=== PATIENT | male | born 1990 | race Hispanic/Latino ===

== ENCOUNTER 2020-05-17 06:57 | Emergency (ER) | payer SELFPAY ==
[2020-05-17] MEDS ORDERED: KETOROLAC 30 MG/ML INJ ONE (08:03)
[2020-05-17 08:41] LABS: SARS-COV-2 RT PCR POSITIVE (NEGATIVE)
--- NOTE | 2020-05-17 08:47 | ER ---
Nurse's Notes [facility] Name: Saroj Hassan Age: 29 yrs Sex: Male : 1990 Arrival Date: 05/17/2020 Time: 07:05 Bed 13 Private MD: Diagnosis: SARS-associated coronavirus as the cause of diseases classified elsewhere;Acute laryngopharyngitis;Viral infection, unspecified Presentation: 05/17 07:15 Chief complaint: Patient states: sore throat and bilateral ear pain that began Wednesday. ss Coronavirus screen: Client denies travel out of the [place] in the last 14 days. Client presents with at least one sign or symptom that may indicate coronavirus-19. Standard/surgical mask placed on the client. Ebola Screen: Patient denies exposure to infectious person. Patient denies travel to an Ebola-affected area in the 21 days before illness onset. Initial Sepsis Screen: Does the patient meet any 2 criteria? HR > 90 bpm. No. Patient's initial sepsis screen is negative. Does the patient have a suspected source of infection? No. Patient's initial sepsis screen is negative. Risk Assessment: Do you want to hurt yourself or someone else? Patient reports no desire to harm self or others. Onset of symptoms was May 13, 2020. 07:15 Method Of Arrival: Ambulatory 07:15 Acuity: KENDALL 4 ss Historical: - Allergies: 07:16 No Known Allergies; ss - Home Meds: 07:16 None [Active]; ss - PMHx: 07:16 None; ss - PSHx: 07:16 None; ss - Immunization history:: Adult Immunizations unknown. - Social history:: Smoking status: Patient denies any tobacco usage or history of. Screenin:42 Abuse screen: Denies threats or abuse. Denies injuries from another. Nutritional iw screening: No deficits noted. Tuberculosis screening: No symptoms or risk factors identified. Fall Risk None identified. Assessment: 07:41 General: Appears in no apparent distress. Behavior is calm, cooperative. General: iw Reports feeling ill for. Pain: Complains of pain in throat, ears, body aches. Neuro: Level of Consciousness is awake, alert, obeys commands, Oriented to person, place, time, situation, Moves all extremities. Full function. Cardiovascular: Patient's skin is warm and dry. Respiratory: Respiratory effort is even, unlabored, Respiratory pattern is regular. EENT: Throat is reddened. Derm: Skin is intact, is healthy with good turgor. Musculoskeletal: Range of motion: intact in all extremities. Vital Signs: 07:15 BP 148 / 83; Pulse 101; Resp 16; Temp 98.2(O); Pulse Ox 100% on R/A; Weight 88.9 kg; ss Height 5 ft. 7 in. (170.18 cm); Pain 10/10; 07:15 Body Mass Index 30.70 (88.90 kg, 170.18 cm) ED Course: 07:05 Patient arrived in ED. bp1 07:15 Arm band placed on right wrist. ss 07:16 Triage completed. ss 07:18 Dirk Castillo MD is Attending Physician. kdr 07:27 Lacie Melvin, RN is Primary Nurse. iw Administered Medications: 07:48 Drug: TORadol - Ketorolac 15 mg Route: IM; Site: left deltoid; iw Outcome: 08:46 Discharge ordered by . kdr 08:56 Patient left the ED. iw Signatures: Dirk Castillo MD MD kdr Lacie Melvin, RN RN Annette France, JARETT RN Berkley Alfaro bp1
--- NOTE | 2020-05-17 08:47 | EDPHYS ---
Physician Documentation [facility] Name: Saroj Hassan Age: 29 yrs Sex: Male : 1990 Arrival Date: 05/17/2020 Time: 07:05 Bed 13 Private MD: ED Physician Dirk Castillo HPI: 05/17 07:27 This 29 yrs old Male presents to ER via Ambulatory with complaints of Ear kdr Pain, Sore Throat. 07:27 The patient presents with sore throat. The patient describes throat pain as burning, kdr constant, raw. Onset: The symptoms/episode began/occurred gradually, Wednesday. Severity of symptoms: At their worst the symptoms were mild, moderate, just prior to arrival, in the emergency department the symptoms are unchanged. Modifying factors: The symptoms are alleviated by nothing, the symptoms are aggravated by foods, swallowing. Associated signs and symptoms: Pertinent positives: cough, headache, Bilateral ear pain. The patient has not experienced similar symptoms in the past. The patient has not recently seen a physician. Historical: - Allergies: 07:16 No Known Allergies; ss - Home Meds: 07:16 None [Active]; ss - PMHx: 07:16 None; ss - PSHx: 07:16 None; ss - Immunization history:: Adult Immunizations unknown. - Social history:: Smoking status: Patient denies any tobacco usage or history of. ROS: 07:27 Constitutional: Negative for fever, chills, and weight loss, Eyes: Negative for injury, kdr pain, redness, and discharge, Neck: Negative for injury, pain, and swelling, Cardiovascular: Negative for chest pain, palpitations, and edema, Respiratory: Negative for shortness of breath, cough, wheezing, and pleuritic chest pain, Abdomen/GI: Negative for abdominal pain, nausea, vomiting, diarrhea, and constipation, Back: Negative for injury and pain, : Negative for injury, bleeding, discharge, and swelling, MS/Extremity: Negative for injury and deformity, Skin: Negative for injury, rash, and discoloration, Neuro: Negative for headache, weakness, numbness, tingling, and seizure activity. Psych: Negative for depression, anxiety, suicide ideation, homicidal ideation, and hallucinations, Allergy/Immunology: Negative for hives, rash, and allergies, Endocrine: Negative for neck swelling, polydipsia, polyuria, polyphagia, and marked weight changes, Hematologic/Lymphatic: Negative for swollen nodes, abnormal bleeding, and unusual bruising. 07:27 ENT: Positive for difficulty swallowing, ear pain, sore throat. Exam: 07:27 Constitutional: This is a well developed, well nourished patient who is awake, alert, kdr and in no acute distress. Head/Face: Normocephalic, atraumatic. Eyes: Pupils equal round and reactive to light, extra-ocular motions intact. Lids and lashes normal. Conjunctiva and sclera are non-icteric and not injected. Cornea within normal limits. Periorbital areas with no swelling, redness, or edema. Neck: Trachea midline, no thyromegaly or masses palpated, and no cervical lymphadenopathy. Supple, full range of motion without nuchal rigidity, or vertebral point tenderness. No Meningismus. Chest/axilla: Normal chest wall appearance and motion. Nontender with no deformity. No lesions are appreciated. Cardiovascular: Regular rate and rhythm with a normal S1 and S2. No gallops, murmurs, or rubs. Normal PMI, no JVD. No pulse deficits. Respiratory: Lungs have equal breath sounds bilaterally, clear to auscultation and percussion. No rales, rhonchi or wheezes noted. No increased work of breathing, no retractions or nasal flaring. Abdomen/GI: Soft, non-tender, with normal bowel sounds. No distension or tympany. No guarding or rebound. No evidence of tenderness throughout. Back: No spinal tenderness. No costovertebral tenderness. Full range of motion. Skin: Warm, dry with normal turgor. Normal color with no rashes, no lesions, and no evidence of cellulitis. MS/ Extremity: Pulses equal, no cyanosis. Neurovascular intact. Full, normal range of motion. Neuro: Awake and alert, GCS 15, oriented to person, place, time, and situation. Cranial nerves II-XII grossly intact. Motor strength 5/5 in all extremities. Sensory grossly intact. Cerebellar exam normal. Normal gait. Psych: Awake, alert, with orientation to person, place and time. Behavior, mood, and affect are within normal limits. 07:27 ENT: External ear(s): are unremarkable, Ear canal(s): are normal, TM's: bulging, Mouth: is normal, Posterior pharynx: Tonsils: with erythema, no enlargement, no exudate, Uvula: midline. Vital Signs: 07:15 BP 148 / 83; Pulse 101; Resp 16; Temp 98.2(O); Pulse Ox 100% on R/A; Weight 88.9 kg; ss Height 5 ft. 7 in. (170.18 cm); Pain 10/10; 07:15 Body Mass Index 30.70 (88.90 kg, 170.18 cm) ss MDM: 07:27 Data reviewed: vital signs, nurses notes, lab test result(s). Counseling: I had a kdr detailed discussion with the patient and/or guardian regarding: the historical points, exam findings, and any diagnostic results supporting the discharge/admit diagnosis, lab results, the need for outpatient follow up. 08:46 Patient medically screened. [facility] 05/17 07:19 Order name: Strep; Complete Time: 08:45 [facility] 05/17 08:18 Order name: Throat Culture EDMS 05/17 08:41 Order name: COVID-19/FLU A+B; Complete Time: 08:45 EDMS Administered Medications: 07:48 Drug: TORadol - Ketorolac 15 mg Route: IM; Site: left deltoid; iw Disposition: 05/17/20 08:46 Discharged to Home. Impression: SARS-associated coronavirus as the cause of diseases classified elsewhere, Acute laryngopharyngitis, Viral infection, unspecified. - Condition is Stable. - Discharge Instructions: Pharyngitis, [id number], Viral Respiratory Infection, [id number], COVID-19. - Prescriptions for Ibuprofen 800 mg Oral Tablet - take 1 tablet by ORAL route every 8 hours As needed take with food; 30 tablet. Tramadol 50 mg Oral Tablet - take 1 tablet by ORAL route every 8 hours as needed; 12 tablet. - Medication Reconciliation Form, Thank You Letter, Antibiotic Education, Prescription Opioid Use form. - Follow up: Private Physician; When: 2 - 3 days; Reason: If symptoms return, Further diagnostic work-up, Recheck today's complaints, Continuance of care, Re-evaluation by your physician. - Problem is new. - Symptoms have improved. Signatures: Dispatcher [employer] [facility] Dirk Castillo MD MD kdr Olegario, LacieJARETT haro RN, Shelby, RN RN ss Corrections: (The following items were deleted from the chart) 07:51 07:20 Influenza Screen (A \T\ B)+BA.LAB.BRZ ordered. [facility] EDMS 07:51 07:20 CORONAVIRUS+MR.LAB.BRZ ordered. [facility] EDMS 08:56 08:46 05/17/2020 08:46 Discharged to Home. Impression: SARS-associated coronavirus as iw the cause of diseases classified elsewhere; Acute laryngopharyngitis; Viral infection, unspecified. Condition is Stable. Forms are Medication Reconciliation Form, Thank You Letter, Antibiotic Education, Prescription Opioid Use. Follow up: Private Physician; When: 2 - 3 days; Reason: If symptoms return, Further diagnostic work-up, Recheck today's complaints, Continuance of care, Re-evaluation by your physician. Problem is new. Symptoms have improved. kdr
[2020-05-17 09:16] VITALS: BP 148/83; TEMP 98.2; O2SAT 100
== END 2020-05-17 08:56 | disposition home or self-care (01) ==
LOC: ER 06:57
DX: U07.1 COVID-19 (principal); J06.0 Acute laryngopharyngitis
CPT/HCPCS: 0240U; 87070; 87081; 96372; 99282